=== PATIENT | male | born 1975 | race Caucasian/White ===

== ENCOUNTER 2017-02-27 00:51 | Inpatient (IN) | payer MEDICAID ==
[~2017-02-27] VITALS: Ht 177.8 cm; Wt 88.1 kg
[2017-02-27 02:32] VITALS: BP 153/78
[2017-02-27 03:41] VITALS: BP 107/68
[2017-02-27] MEDS ORDERED: LAMO25 PO (03:42)
[2017-02-27] MEDS ORDERED: PNEUMOCOCCAL VACCINE POLYVALENT 0.5 ML VIAL [PPSV23] IM ONE (04:30)
[2017-02-27 08:21] VITALS: BP 128/81
[2017-02-27] MEDS: ARIPiprazole 5 MG TABLET PO SCH (12:14)
[2017-02-27 16:09] VITALS: BP 134/77
[2017-02-27] MEDS: LORazepam 2 MG TABLET PO PRN (19:31)
[2017-02-27] MEDS: ZOLPIDEM TARTRATE 10 MG TABLET PO PRN (22:23)
[2017-02-28 00:53] VITALS: BP 124/76
[2017-02-28 07:37] LABS: BASOPHILS % (AUTO) 0.3 % (0.0-2.0); EOSINOPHILS % (AUTO) 1.2 % (1.0-6.0); HEMATOCRIT 44.9 % (41-53); HEMOGLOBIN 14.4 g/dL (13.5-17.5); LYMPHOCYTES # (AUTO) 2.2 K/uL (1.0-4.8); LYMPHOCYTES % (AUTO) 21.9 % (22.0-44.0); MEAN CORPUSCULAR HEMOGLOBIN 29.9 pg (26.0-34.0); MEAN CORPUSCULAR VOLUME 93 fL (80-100); MONOCYTES # (AUTO) 0.6 K/uL (0.1-1.0); MONOCYTES % (AUTO) 6.5 % (2.0-9.0); NEUTROPHILS % (AUTO) 70.1 % (40.0-70.0); PLATELET COUNT (AUTO) 352 K/uL (150-450); RED BLOOD CELL COUNT(AUTO) 4.81 MIL/uL (4.50-5.90); RED CELL DISTRIBUTION WIDTH 13.5 % (11.5-14.5)
[2017-02-28 07:59] LABS: HEMOGLOBIN A1C 5.4 % (4.5-6.2)
[2017-02-28] MEDS: ARIPiprazole 5 MG TABLET PO SCH (08:01)
[2017-02-28 08:05] LABS: ALANINE AMINOTRANSFERASE 26 U/L (12-78); ALBUMIN 3.9 g/dL (3.4-5.0); ANION GAP 7 mmol/L (8-16); ASPARTATE AMINOTRANSFERASE 16 U/L (15-37); BILIRUBIN,TOTAL 0.6 mg/dL (0.1-1.0); CARBON DIOXIDE 26 mmol/L (22-29); CHLORIDE 102 mmol/L (98-107); CHOL/HDL RATIO 2.7 (4.2-7.3); CREATININE 0.96 mg/dL (0.60-1.30); GLOMERULAR FILTR. RATE CALC > 60 mL/min (>60); POTASSIUM 4.6 mmol/L (3.5-5.1); SODIUM SERUM 135 mmol/L (136-145); THYROID STIMULATING HORMONE 1.11 uIU/mL (0.36-3.74); TOTAL PROTEIN, SERUM 6.6 g/dL (6.4-8.2); UREA NITROGEN, BLOOD 11 mg/dL (7-18)
[2017-02-28 08:39] VITALS: BP 128/79
[2017-02-28] MEDS: LORazepam 2 MG TABLET PO PRN (16:25)
[2017-02-28 16:37] VITALS: BP 132/72
[2017-02-28] MEDS: ZOLPIDEM TARTRATE 10 MG TABLET PO PRN (20:56)
[2017-03-01 00:15] VITALS: BP 117/70
[2017-03-01 08:05] VITALS: BP 130/78
[2017-03-01] MEDS: ARIPiprazole 5 MG TABLET PO SCH (08:40)
[2017-03-01] MEDS: LORazepam 2 MG TABLET PO PRN (10:05)
[2017-03-01 16:00] VITALS: BP 12/74
[2017-03-01] MEDS: ZOLPIDEM TARTRATE 10 MG TABLET PO PRN (21:09)
[2017-03-02 04:49] VITALS: BP 136/84
[2017-03-02 08:05] VITALS: BP 142/88
[2017-03-02] MEDS: ARIPiprazole 5 MG TABLET PO SCH (08:35)
[2017-03-02] MEDS ORDERED: ARIP5TAB9 PO (09:38)
== END 2017-03-02 10:12 | disposition home or self-care (01) | DRG 753 ==
LOC: B2S 02:48 → EDSTATUS 02:54
DX: F31.2 Bipolar disorder, current episode manic severe with psychotic features (principal); J45.909 Unspecified asthma, uncomplicated; Z88.1 Allergy status to other antibiotic agents; R03.0 Elevated blood-pressure reading, without diagnosis of hypertension; Z23 Encounter for immunization
CPT/HCPCS: 83036; 84439; 84443; 90471